=== PATIENT | female | born 1985 | race Caucasian/White ===

== ENCOUNTER 2025-07-11 19:36 | Emergency (ER) | payer BC, SELFPAY ==
[2025-07-11 19:50] VITALS: BP 134/100
[2025-07-11 20:13] LABS: Hematocrit 37.3 % (37.0-47.0); Hemoglobin 12.3 g/dL (12.0-16.0); Mean Corp Hgb Conc. 33.0 g/dL (33.0-37.0); Mean Corpuscular Volume 84.6 fL (81.0-99.0); Nucleated Red Blood Cells % 0 %; Platelet Count 248 10^3/uL (130-400); Red Cell Dist. Width 12.8 % (11.5-14.5)
[2025-07-11 20:31] LABS: ALT (SGPT) 15 U/L (0-35); AST (SGOT) 18 U/L (14-36); Albumin 4.5 g/dl (3.5-5.0); Alkaline Phosphatase 43 U/L (38-126); Blood Urea Nitrogen 15 mg/dl (7-17); Calcium 9.3 mg/dl (8.4-10.2); Carbon Dioxide 26 mmol/L (22-30); Chloride 107 mmol/L (98-107); Glucose 90 mg/dl (70-99); Potassium 4.2 mmol/L (3.5-5.1); Sodium 139 mmol/L (135-145); Total Protein 7.0 g/dl (6.3-8.2); eGFR > 60.00
[2025-07-11 20:42] LABS: Troponin I < 0.012 ng/ml
[2025-07-11 20:59] VITALS: BMI 22.0
--- NOTE | 2025-07-11 21:19 | ED.GENMED ---
History of Present Illness
General
Chief Complaint: Dizziness
Source: patient
Exam Limitations: none
Time Seen by Provider: 07/11/25 20:55
History of Present Illness
History of Present Illness:
40-year-old female otherwise healthy presents with onset of dizziness and disequilibrium starting today. She works as a teacher. She was standing when this happened. She describes a dizzy sensation. The dizzy sensation is not made worse with
position change. It seems to be constant. No associated vision change including loss of vision double vision or blurry vision. No unilateral numbness or weakness. She does complain of left leg pain starting 8 days ago. She was kicked in the leg
playing soccer and has a large bruise. She was seen in urgent care prior to arrival and was sent here for further evaluation. No fevers. No chest pain or shortness of breath. She was nauseous with her first wave of dizziness but there has not
been any vomiting.
Phy Exam
Physical Exam
Physical Exam:
General: Well-appearing female no acute respiratory distress
HEENT normal cephalic atraumatic no nystagmus pupils equal round reactive to light TMs normal neck is supple heart: Regular rate and rhythm
Lungs: Clear no wheeze neurologic exam: Alert and oriented
No drift on exam finger-nose [id number] intact. No ataxia noted no dysarthria or aphasia. Albino-Hallpike without significant findings.
Skin is warm no rash
Course
Orders/Labs/Results
Orders:
Orders
07/11/25 19:56
Electrocardiogram (*1) Urgent
Reason for Study: Vertigo / Dizzy
EKG- Treatment ONCE
07/11/25 20:05
Complete Blood Count/With Diff Urgent
Comprehensive Metabolic Panel Urgent
HCG, Serum Qualitative Screen Urgent
Comment: ADD ON
Troponin I Urgent
07/11/25 21:11
CT Head & Neck Angio W/wo IV Urgent
Comment:
Reason For Exam: dizziness
Venous Doppler Lwr Ext Left [US Periph Venous LOWER Ext LT] Urgent
Comment:
Reason For Exam: swelling
07/11/25 21:18
Add On- LAB Urgent
Tests Added?: serum test
Abnormal Lab Results
07/11/25
20:05
MPV 11.3 H fL
(7.4-10.4)
07/11/25 20:05
07/11/25 20:05
Vital Signs
Initial and Last Documented VS:
Initial Vital Signs
Temp Pulse Resp BP Pulse Ox
98.1 F 83 18 134/100 100
07/11/25 19:50 07/11/25 19:50 07/11/25 19:50 07/11/25 19:50 07/11/25 19:50
Last Documented Vital Signs
Temp Pulse Resp BP Pulse Ox
98.1 F 80 20 124/94 100
07/11/25 19:50 07/11/25 22:41 07/11/25 22:41 07/11/25 22:41 07/11/25 22:41
MDM/Problems Addressed
Differential Diagnosis Includes:
Dizziness. Question vertigo versus neuritis versus TIA or stroke. TIA or stroke unlikely and otherwise young and healthy female. She did strike her leg playing soccer and appears to have a hematoma to the left lower leg. Ultrasound of the leg
will be ordered CT angio of the head and neck were ordered
*Pulse Oximetry
SaO2: 100
Oxygen Mode of Delivery: Room air
Patient hypoxic: no
*Critical Care Note
Total Time (30-74mins, 75-104mins- exclusive of procedures): Not Applicable
Update Note
Update Note:
. Patient reassessed and is nontoxic in assessment. CT angio of the head and neck were negative for acute finding. Blood pressure slightly on the high side 134/94. She is neurologically intact. Question possible underlying vertigo no sign of
stroke. Recommended meclizine if needed. Will have her follow-up with family doctor for blood pressure check and recheck in general. Return precautions were given. Discussed with ED attending.
ED Attending Note
-
Portions of this chart may have been created with voice recognition software.� Occasional wrong word or��sound alike� substitutions may have occurred due to the inherent limitations of voice recognition software.
Discharge Plan
Departure
Patient Disposition: Home (Routine Discharge)
Date of Disposition: 07/11/25
Time of Disposition: 23:48
Patient with high blood pressure during this ER visit?: No
Discharge Problem:
Dizziness
Instructions: Dizziness
Prescriptions:
No Action
Vyvanse
50 mg PO DAILY
Fish Oil
1 tab PO DAILY
Probiotic
1 tab PO DAILY
Referrals:
UNKNOWN - PT DOES,NOT KNOW [Family Provider]
Activity Restrictions/Additional Instructions:
Use meclizine if needed for dizziness. Return for worsening symptoms otherwise follow-up with your doctor
Interventions
Interventions:
*Risk Screen - Suicide Last Done: 07/11/25 19:53
*General Assessment Last Done: 07/11/25 19:53
*Neglect/Abuse Screening Last Done: 07/11/25 19:53
*ED COVID-19 Vaccine History Last Done: 07/11/25 19:53
*ED Influenza Vaccine History Last Done: 07/11/25 19:53
ED- Neurological Assessment Last Done: 07/11/25 21:38
ED- Cardiac Assessment Last Done: 07/11/25 21:38
Discharge Date and Time
Print Language: ICELANDIC
[2025-07-11 21:53] LABS: HCG, Serum Qualitative Screen Negative
[2025-07-11 22:41] VITALS: BP 124/94
[2025-07-12] MEDS: ANTIVERT 25 MG PO (00:01)
[2025-07-12 00:12] VITALS: BP 134/97
== END 2025-07-12 00:15 | disposition home or self-care (01) ==
LOC: EMR 19:36
PROVIDERS: Student in an Organized Health Care Education/Training Program; EMERGENCY PHYSICIAN Emergency Medicine
DX: R42 Dizziness and giddiness (principal)
CPT/HCPCS: 99284; 70496; 70498; 80053; 84484; 84703; 85025; 93005; 93971; Q9967